=== PATIENT | female | born 1975 | race Caucasian/White ===

== ENCOUNTER 2024-11-03 07:19 | Emergency (ER) | payer OTHER, SELFPAY ==
[2024-11-03 07:38] VITALS: BP 181/101; PULSE 95; RESP 18; TEMP 36.6; O2SAT 100
--- NOTE | 2024-11-03 08:14 | ED_ITS ---
HPI - Eye Problem General Chief complaint: Eye Problems Stated complaint: vision changes Time Seen by Provider: 11/03/24 07:47 Source: patient and family Mode of arrival: ambulatory Limitations: no limitations History of Present Illness HPI Narrative: 49 years old white female came to the ED with redness, pain and discharge of the right eye started over 1 year ago, intermittent, was seen at [place] emergency room then was seen by [facility] last time 2 months ago, started on ointment for possible dry eye/no eye lashes, without any improvement. Patient reports flare up of migraine headache because of the stress about her eye. She denies any fever, chills, nausea, vomiting. Patient does not know exactly what with diagnosis of her right eye disease which been going often on for over 1 year. Related Data Allergies Allergy/AdvReac Type Severity Reaction Status Date / Time metronidazole Allergy Vomiting Verified 11/03/24 07:44 METRONIDAZOLE HCL Allergy Vomiting Uncoded 11/03/24 07:44 Review of Systems Review of Systems: All systems reviewed & are unremarkable except as noted in HPI and below Exam Narrative: General appearance: Well-developed, well-nourished Skin: Normal color Head: Normocephalic, nontraumatic Eyes: Conjunctival injection, no discharge light bothering the patient, unable to keep her eye opens during exam, no eye lashes bilaterally ENT: Oropharynx normal, ears normal, nose normal Neurologic: Alert and oriented ?3, [employer] is normal as tested, no gross motor deficit Course Vital Signs Vital signs: Vital Signs Temperature 36.6 C 11/03/24 07:38 Pulse Rate 95 11/03/24 07:38 Respiratory Rate 18 11/03/24 07:38 Blood Pressure 181/101 H 11/03/24 07:38 Pulse Oximetry 100 11/03/24 07:38 Oxygen Delivery Room Air 11/03/24 07:38 Temperature 36.6 C 11/03/24 07:38 Pulse Rate 95 11/03/24 07:38 Respiratory Rate 18 11/03/24 07:38 Blood Pressure 181/101 H 11/03/24 07:38 Pulse Oximetry 100 11/03/24 07:38 Oxygen Delivery Room Air 11/03/24 07:38 MDM - Eye Problem MDM Narrative Medical decision making narrative: Patient report that she been seen at [facility] before for the same problem and did not get better on the ointment which she received from them 2 months ago. My plan to prescribe ciprofloxacin eyedrops and to recommend to go to [facility] as soon as possible Critical Care Time Critical Care Time Critical Care Time: No Discharge Plan Discharge Clinical Impression: Conjunctivitis Patient Disposition: Home, Self-Care Condition: Stable Instructions: Conjunctivitis (ED) Additional Instructions: Return if symptoms are worsening , go to [facility] immediately for further evaluation and management Patient Language: Russian Prescriptions: New ciprofloxacin HCl 0.3 % drops 1 drp RIGHT EYE Q4H 5 Days Qty: 10 0RF Rx Instructions: administer while awake Follow-up/Referrals: UNKNOWN,DOCTOR [Primary Care Provider] -
[2024-11-03] MEDS: HYDROcodone/acetaminophen (*CRX) 5-325 MG TABLET 1 TAB PO (08:20)
[2024-11-03] MEDS: KETOROLAC (*BKC) 60 MG/2 ML VIAL IM (08:20)
[2024-11-03 08:31] VITALS: BP 168/101; PULSE 93; RESP 18; O2SAT 100
== END 2024-11-03 08:32 | disposition home or self-care (01) ==
PROVIDERS: Emergency Provider Emergency Medicine
DX: H10.9 Unspecified conjunctivitis (principal)
CPT/HCPCS: 96372; 99283; A9270; J1885